=== PATIENT | female | born 1960 | race Caucasian/White ===

== ENCOUNTER 2016-05-13 22:55 | Emergency (ER) | payer OTHER ==
--- NOTE | 2016-05-13 23:53 | ED CLINICAL REPORT ---
Clinical Report - Physicians/Mid Levels [facility] [address] [place] [address] 05/13/2016 22:54 Patient: HA SAINI Time Seen: 23:46 May 13 2016. Arrived- By private vehicle. Historian- patient. CPT: ER phys charges level 4 plus (#[id number]). EKG interpretation (#[id number]). HISTORY OF PRESENT ILLNESS Chief Complaint: CHEST PAIN. At its maximum, severity described as moderate. When seen in the E.D., severity described as mild. Modifying factors- worsened by movement. Relieved by rest. It is described as aching, sharp, "pain" and well localized and it is described as located in the right chest and central chest area. This started today and is still present. Onset during light activity. No nausea, vomiting, difficulty breathing or diaphoresis. Similar symptoms previously: None. Recent medical care: Not recently seen/assessed. REVIEW OF SYSTEMS No fever, chills, cough, pedal edema or calf pain. No fainting episodes, sore throat, abdominal pain, black stools or difficulty with urination. No skin rash, enlarged lymph nodes, joint pain or bloody stools. All systems otherwise negative, except as recorded above. PAST HISTORY Insect Bite(s). Thyroid Disease. Anxiety Reaction. Hyperventilation. Palpitations. LNMP - Last Normal Menstrual Period. Hypothyroidism. --23:12 Truong Olvera R.N. ADDITIONAL SURGERIES: Adenoidectomy. . Hip Surgery. Tonsillectomy. No history of coronary artery disease, heart disease, lung disease, neurological disease or congestive heart failure. No history of heart rhythm problems or pulmonary embolism. SOCIAL HISTORY Never smoker. Occasional alcohol use. ADDITIONAL NOTES The nursing notes have been reviewed. PHYSICAL EXAM Vital Signs: 05/13/2016 23:16 BP: 161/97. HR: 67. RR: 18. O2 saturation: 100%. Temp: 98.2 F. Appearance: Alert. Anxious. Patient in mild distress. Eyes: Eyes normal inspection. ENT: Pharynx normal. Neck: Normal inspection. Neck supple. CVS: Normal heart rate and rhythm. Heart sounds normal. Pulses normal. Respiratory: No respiratory distress. Chest pain reproducible with palpation of the costal cartilage and anterior chest wall, with movement of the trunk and right arm and with deep breathing. Breath sounds normal. Abdomen: Soft and nontender. Back: Normal external inspection. Skin: Skin warm. Normal skin color. No rash. Extremities: Extremities exhibit normal ROM. No calf tenderness. No lower extremity edema. Neuro: Oriented X 3. No motor deficit. No sensory deficit. Reflexes normal. LABS, X-RAYS, AND EKG EKG: Normal EKG. PROGRESS AND PROCEDURES Course of Care: Pt is point tender over the chest wall. Patient/family counseled. Disposition: Discharged. Condition: stable. CLINICAL IMPRESSION Chest wall pain .12 lead EKG performed. INSTRUCTIONS Apply heat. No strenuous activity. Rest. Warnings: Further evaluation is necessary. GENERAL WARNINGS: Return or contact your physician immediately if your condition worsens or changes unexpectedly, if not improving as expected, or if other problems arise. OTC Medications: Motrin (available over the counter): take according to label instructions. Follow-up: Follow up with your doctor in one week. Call for an appointment. Understanding of the discharge instructions verbalized by patient. (Electronically signed by Jose Luis Vela MD 05/16/2016 20:42) Thanh sher HA SAINI VisitID: [id number] Date: 05/13/2016 05/16/2016 20:41 EKG ordered during ER visit. (Electronically signed by Jose Luis Vela MD - 05/16/2016 20:41)
--- NOTE | 2016-05-13 23:53 | ED CLINICAL REPORT ---
Clinical Report - Physicians/Mid Levels [facility] [address] [place] [address] 05/13/2016 22:54 Patient: HA SAINI Time Seen: 23:46 May 13 2016. Arrived- By private vehicle. Historian- patient. CPT: ER phys charges level 4 plus (#[id number]). EKG interpretation (#[id number]). HISTORY OF PRESENT ILLNESS Chief Complaint: CHEST PAIN. At its maximum, severity described as moderate. When seen in the E.D., severity described as mild. Modifying factors- worsened by movement. Relieved by rest. It is described as aching, sharp, "pain" and well localized and it is described as located in the right chest and central chest area. This started today and is still present. Onset during light activity. No nausea, vomiting, difficulty breathing or diaphoresis. Similar symptoms previously: None. Recent medical care: Not recently seen/assessed. REVIEW OF SYSTEMS No fever, chills, cough, pedal edema or calf pain. No fainting episodes, sore throat, abdominal pain, black stools or difficulty with urination. No skin rash, enlarged lymph nodes, joint pain or bloody stools. All systems otherwise negative, except as recorded above. PAST HISTORY Insect Bite(s). Thyroid Disease. Anxiety Reaction. Hyperventilation. Palpitations. LNMP - Last Normal Menstrual Period. Hypothyroidism. --23:12 Truong Olvera R.N. ADDITIONAL SURGERIES: Adenoidectomy. . Hip Surgery. Tonsillectomy. No history of coronary artery disease, heart disease, lung disease, neurological disease or congestive heart failure. No history of heart rhythm problems or pulmonary embolism. SOCIAL HISTORY Never smoker. Occasional alcohol use. ADDITIONAL NOTES The nursing notes have been reviewed. PHYSICAL EXAM Vital Signs: 05/13/2016 23:16 BP: 161/97. HR: 67. RR: 18. O2 saturation: 100%. Temp: 98.2 F. Appearance: Alert. Anxious. Patient in mild distress. Eyes: Eyes normal inspection. ENT: Pharynx normal. Neck: Normal inspection. Neck supple. CVS: Normal heart rate and rhythm. Heart sounds normal. Pulses normal. Respiratory: No respiratory distress. Chest pain reproducible with palpation of the costal cartilage and anterior chest wall, with movement of the trunk and right arm and with deep breathing. Breath sounds normal. Abdomen: Soft and nontender. Back: Normal external inspection. Skin: Skin warm. Normal skin color. No rash. Extremities: Extremities exhibit normal ROM. No calf tenderness. No lower extremity edema. Neuro: Oriented X 3. No motor deficit. No sensory deficit. Reflexes normal. LABS, X-RAYS, AND EKG EKG: Normal EKG. PROGRESS AND PROCEDURES Course of Care: Pt is point tender over the chest wall. Patient/family counseled. Disposition: Discharged. Condition: stable. CLINICAL IMPRESSION Chest wall pain .12 lead EKG performed. INSTRUCTIONS Apply heat. No strenuous activity. Rest. Warnings: Further evaluation is necessary. GENERAL WARNINGS: Return or contact your physician immediately if your condition worsens or changes unexpectedly, if not improving as expected, or if other problems arise. OTC Medications: Motrin (available over the counter): take according to label instructions. Follow-up: Follow up with your doctor in one week. Call for an appointment. Understanding of the discharge instructions verbalized by patient. (Electronically signed by Jose Luis Vela MD 05/16/2016 20:42) Thanh sher HA SAINI VisitID: [id number] Date: 05/13/2016 05/16/2016 20:41 EKG ordered during ER visit. (Electronically signed by Jose Luis Vela MD - 05/16/2016 20:41)
--- NOTE | 2016-05-13 23:53 | ED NURSING NOTES ---
Clinical Report - Nurses [facility] [address] [place] [address] 05/13/2016 22:54 Patient: HA SAINI TRIAGE Triage time 2300. Acuity: LEVEL 2. Chief Complaint: CHEST PAIN. --23:14 Truong Olvera R.N. Weight: 100.6 kg stated. Height/Length: 67 inches Per Patient. BMI: 34.8. --23:14 Truong Olvera R.N. Medications None. --23:12 Truong Olvera R.N. Allergies Codeine. --23:12 Truong Olvera R.N. History Arrived by private vehicle. Historian: patient. Accompanied by friend. Onset. (1930). ( feels lightheaded). 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 FALL RISK ASSESSMENT: Fall risk assessment completed. No fall risk identified. NUTRITIONAL RISK ASSESSMENT: The nutritional risk assessment revealed no deficiencies. FUNCTIONAL ASSESSMENT: Functional assessment: no impairments noted. LEARNING NEEDS ASSESSMENT: The learning needs assessment revealed no barriers. SKIN INTEGRITY ASSESSMENT: Skin integrity risk assessment completed. No skin integrity risk identified. --23:14 Truong Olvera R.N. ( pt states sharp chest pain and light headedness are only s/sx's). --23:15 Truong Olvera R.N. PROBLEMS: Insect Bite(s). Thyroid Disease. Anxiety Reaction. Hyperventilation. Palpitations. LNMP - Last Normal Menstrual Period. Hypothyroidism. --23:12 Truong Olvera R.N. ADDITIONAL SURGERIES: Adenoidectomy. . Hip Surgery. Tonsillectomy. --23:13 Truong Olvera R.N. Interventions ID band on patient. --23:14 Truong Olvera R.N. PHYSICAL ASSESSMENT Ambulatory to room. Patient gowned. GENERAL / NEURO / PSYCH: Alert. Oriented X 4. Appears anxious. HEENT: Mucous membranes are pink. RESPIRATORY: Respirations not labored. Chest nontender. Breath sounds within normal limits. CVS: Normal sinus rhythm noted. Pulses within normal limits. Capillary refill less than 2 seconds. GI / : Abdomen soft and nontender. EXTREMITIES: No lower extremity edema. SKIN: Skin is warm and dry. Normal skin turgor. Skin is non-tender. --23:15 Truong Olvera R.N. NURSING PROGRESS NOTES 23:16 05/13/16. BP: 161/97. HR: 67. RR: 18. O2 saturation: 100%. Temp: 98.2 F. Pain level now 10/24. --23:17 Truong Olvera R.N. Monitoring of patient in place. Patient gowned. Head of bed elevated. Reassurance given. Patient identifiers checked. Call light placed in reach. Bed placed in lowest position. Brakes of bed on. --23:17 Truong Olvera R.N. EKG time: (2313 PM). EKG was ordered, performed by a tech and shown to the ED physician. --23:24 Alexandria Henson. DISPOSITION / DISCHARGE Departure time: 1. Condition at departure: improved. No learning barriers present. Discharge instructions provided and reviewed with the patient and spouse. Reviewed warnings. Reviewed medication(s). Treatments reviewed. Reviewed referrals. Activity restrictions reviewed. Work note given. Patient verbalized understanding. Written instructions provided in Hungarian. The patient was discharged by the physician. She was discharged home and accompanied by spouse. She left the Emergency Department ambulatory and via private vehicle. Spouse driving. --00:10 Truong Olvera R.N. 00:09 05/14/16. BP: 139/92. HR: 66. RR: 16. O2 saturation: 98%. Temp: 98 F. Pain level now 06/24. --00:10 Truong Olvera R.N. Locked/Released at 05/14/2016 0:11 by Truong Olvera R.N.
--- NOTE | 2016-05-13 23:53 | ED NURSING NOTES ---
Clinical Report - Nurses [facility] [address] [place] [address] 05/13/2016 22:54 Patient: HA SAINI TRIAGE Triage time 2300. Acuity: LEVEL 2. Chief Complaint: CHEST PAIN. --23:14 Truong Olvera R.N. Weight: 100.6 kg stated. Height/Length: 67 inches Per Patient. BMI: 34.8. --23:14 Truong Olvera R.N. Medications None. --23:12 Truong Olvera R.N. Allergies Codeine. --23:12 Truong Olvera R.N. History Arrived by private vehicle. Historian: patient. Accompanied by friend. Onset. (1930). ( feels lightheaded). 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 FALL RISK ASSESSMENT: Fall risk assessment completed. No fall risk identified. NUTRITIONAL RISK ASSESSMENT: The nutritional risk assessment revealed no deficiencies. FUNCTIONAL ASSESSMENT: Functional assessment: no impairments noted. LEARNING NEEDS ASSESSMENT: The learning needs assessment revealed no barriers. SKIN INTEGRITY ASSESSMENT: Skin integrity risk assessment completed. No skin integrity risk identified. --23:14 Truong Olvera R.N. ( pt states sharp chest pain and light headedness are only s/sx's). --23:15 Truong Olvera R.N. PROBLEMS: Insect Bite(s). Thyroid Disease. Anxiety Reaction. Hyperventilation. Palpitations. LNMP - Last Normal Menstrual Period. Hypothyroidism. --23:12 Truong Olvera R.N. ADDITIONAL SURGERIES: Adenoidectomy. . Hip Surgery. Tonsillectomy. --23:13 Truong Olvera R.N. Interventions ID band on patient. --23:14 Truong Olvera R.N. PHYSICAL ASSESSMENT Ambulatory to room. Patient gowned. GENERAL / NEURO / PSYCH: Alert. Oriented X 4. Appears anxious. HEENT: Mucous membranes are pink. RESPIRATORY: Respirations not labored. Chest nontender. Breath sounds within normal limits. CVS: Normal sinus rhythm noted. Pulses within normal limits. Capillary refill less than 2 seconds. GI / : Abdomen soft and nontender. EXTREMITIES: No lower extremity edema. SKIN: Skin is warm and dry. Normal skin turgor. Skin is non-tender. --23:15 Truong Olvera R.N. NURSING PROGRESS NOTES 23:16 05/13/16. BP: 161/97. HR: 67. RR: 18. O2 saturation: 100%. Temp: 98.2 F. Pain level now 10/24. --23:17 Truong Olvera R.N. Monitoring of patient in place. Patient gowned. Head of bed elevated. Reassurance given. Patient identifiers checked. Call light placed in reach. Bed placed in lowest position. Brakes of bed on. --23:17 Truong Olvera R.N. EKG time: (2313 PM). EKG was ordered, performed by a tech and shown to the ED physician. --23:24 Alexandria Henson. DISPOSITION / DISCHARGE Departure time: 1. Condition at departure: improved. No learning barriers present. Discharge instructions provided and reviewed with the patient and spouse. Reviewed warnings. Reviewed medication(s). Treatments reviewed. Reviewed referrals. Activity restrictions reviewed. Work note given. Patient verbalized understanding. Written instructions provided in Kiswahili. The patient was discharged by the physician. She was discharged home and accompanied by spouse. She left the Emergency Department ambulatory and via private vehicle. Spouse driving. --00:10 Truong Olvera R.N. 00:09 05/14/16. BP: 139/92. HR: 66. RR: 16. O2 saturation: 98%. Temp: 98 F. Pain level now 06/24. --00:10 Truong Olvera R.N. Locked/Released at 05/14/2016 0:11 by Truong Olvera R.N.
--- NOTE | 2016-05-16 20:43 | ED MED RECONCILIATION SUMMARY ---
Patient: HA SAINI Medication Reconciliation Report [facility] VisitID: [id number] [address] [place] [address] 55y, F Registration Date/Time: 05/13/2016 Weight: 100.6 kg Height/Length: 67 in. BMI: 34.8 ALLERGIES: Codeine The patient's Home Medications are listed below: NONE. The source(s) of the original Home Medication information: Not obtained. The following Medications were given to the patient in the Emergency Department: None. The following Medications were prescribed to the patient: Motrin (available over the counter): take according to label instructions. -- Jose Luis Vela MD
--- NOTE | 2016-05-16 20:43 | ED MED RECONCILIATION SUMMARY ---
Patient: HA SAINI Medication Reconciliation Report [facility] VisitID: [id number] [address] [place] [address] 55y, F Registration Date/Time: 05/13/2016 Weight: 100.6 kg Height/Length: 67 in. BMI: 34.8 ALLERGIES: Codeine The patient's Home Medications are listed below: NONE. The source(s) of the original Home Medication information: Not obtained. The following Medications were given to the patient in the Emergency Department: None. The following Medications were prescribed to the patient: Motrin (available over the counter): take according to label instructions. -- Jose Luis Vela MD
--- NOTE | 2016-05-16 20:43 | ED MAR SUMMARY ---
..... Medication Administration Record [address] [place] [id number] Patient: HA SAINI Visit ID: [id number] 55y, F Weight: 100.6 kg Height/Length: 67 in BMI: 34.8 ALLERGIES: Codeine
--- NOTE | 2016-05-16 20:43 | ED MAR SUMMARY ---
..... Medication Administration Record [facility] [address] [place], [place] [id number] Patient: HA SAINI Visit ID: [id number] 55y, F Weight: 100.6 kg Height/Length: 67 in BMI: 34.8 ALLERGIES: Codeine
--- NOTE | 2016-05-16 20:43 | ED DISCHARGE INSTRUCTIONS ---
Patient: HA SAINI General Instructions [facility] VisitID: [id number] [place] [address] 55y, F Registration Date/Time: 05/13/2016 Chest wall pain .12 lead EKG performed. INSTRUCTIONS Apply heat. No strenuous activity. Rest. Warnings: Further evaluation is necessary. GENERAL WARNINGS: Return or contact your physician immediately if your condition worsens or changes unexpectedly, if not improving as expected, or if other problems arise. OTC Medications: Motrin (available over the counter): take according to label instructions. Follow-up: Follow up with your doctor in one week. Call for an appointment. Understanding of the discharge instructions verbalized by patient. ADDITIONAL INFORMATION Chest Wall Pain: Costochondritis The chest pain that you have had today is caused by Costochondritis. This condition is due to an inflammation of the cartilage joining the ribs to the breastbone. It is not caused by heart or lung problems. Although the exact cause for costochondritis is not known, it often occurs during times of emotional stress. It can be painful, but it is not dangerous. It usually disappears within one to two weeks, but may recur. Rarely, a more serious condition may cause symptoms similar to costochondritis; therefore, watch for the warning signs listed below. Home Care: If you feel that emotional stress is a cause of your condition, try to identify sources of that stress. It may not be obvious! Learn ways to deal with the stress in your life such as regular exercise, muscle relaxation, meditation, or simply taking time out for yourself. For more information about this, consult your doctor or go to a local bookstore and review books and tapes available on the subject of stress reduction. You may use acetaminophen (Tylenol) or ibuprofen (Motrin, Advil) to control pain, unless another pain medicine was prescribed. [ NOTE: If you have liver disease or ever had a stomach ulcer, talk with your doctor before using these medicines.] The use of heat (hot wet compress or heating pad) with or without local analgesic creams (Deep Heat Rub, Luan Carney) will be helpful to reduce pain. Follow Up with your doctor as directed or sooner if you do not start to improve within the next two days. Get Prompt Medical Attention if any of the following occur: A change in the type of pain: if it feels different, becomes more severe, lasts longer, or spreads into your shoulder, arm, neck, jaw or back Shortness of breath or increased pain with breathing Weakness, dizziness, or fainting Cough with dark colored sputum (phlegm) or blood Abdominal pain Dark red or black stools Fever of 100.4F (38C) or higher, or as directed by your healthcare provider You have been given the following additional information: Chest Wall Pain, Costochondritis No strenuous activity. Rest. (Electronically signed by Jose Luis Vela MD 05/16/2016 20:42)
== END 2016-05-14 00:02 | disposition home or self-care (01) ==
LOC: ED SRH 22:55
DX: R07.89 Other chest pain (principal); E03.9 Hypothyroidism, unspecified